=== PATIENT | male | born 1980 | race African-American/Black ===

== ENCOUNTER 2016-08-04 01:54 | Emergency (ER) | payer SELFPAY ==
[~2016-08-04] VITALS: Ht 190.5 cm; Wt 103.0 kg
[2016-08-04 02:00] VITALS: BP 150/94; PULSE 78; RESP 18; TEMP 99; O2SAT 96
[2016-08-04] MEDS ORDERED: CLIN1CAP5 PO (02:57)
[2016-08-04] MEDS ORDERED: NAPR500 PO (02:57)
--- NOTE | 2016-08-04 02:57 | PD ---
HPI Chief Complaint: Oral / Dental Pain or Problem Time Seen by Provider: 02:53 Travel History International Travel<30 days: No Contact w/Intl Traveler<30days: No Traveled to known affect area: No History of Present Illness HPI Patient comes in complaining of right lower dental pain ongoing for 3 days. Sharp stabbing in nature without radiation. Patient has been using warm saltwater gargles with no improvement of symptoms. Eating and smoking makes the pain worse. Denies any fevers or difficulty swallowing. Patient denies anything like this in the past. PFSH Past Medical History Medical History: Denies Significant Hx Diminished Hearing: No Past Surgical History Abdominal Surgery: Yes (appendectomy) Appendectomy: Yes Other Surgery: Yes (R HAND) Social History Alcohol Use: No Tobacco Use: Yes (denies) Substance Use: No Allergies-Medications (Allergen,Severity, Reaction): Coded Allergies: No Known Allergies (Verified , 08/04/16) Reported Meds & Prescriptions Reported Meds & Active Scripts Active Naprosyn (Naproxen) 500 Mg Tab 500 Mg PO Q12HR PRN Clindamycin (Clindamycin HCl) 150 Mg Cap 2 Tab PO Q6H 10 Days Review of Systems Except as stated in HPI: all other systems reviewed are Neg Physical Exam Narrative GENERAL: Well-developed, well nourished, in no acute distress, and non-ill appearing. SKIN: Warm and dry. HEAD: Atraumatic. Normocephalic. EYES: Pupils equal and round. EOMI. No scleral icterus. No injection or drainage. ENT: No nasal bleeding or discharge. Mucous membranes pink and moist. Poor dentition with no visible or palpable abscess. Uvula is midline. Floor of the mouth, submandibular, submental are all soft to palpation. NECK: Trachea midline. No cervical lymphadenopathy. Supple. No nuclear rigidity. RESPIRATORY: No accessory muscle use. No respiratory distress. MUSCULOSKELETAL: No obvious deformities. No clubbing. No cyanosis. No edema. Full range of motion. NEUROLOGICAL: Awake and alert. No obvious cranial nerve deficits. Motor grossly within normal limits. Normal speech. PSYCHIATRIC: Appropriate mood and affect; insight and judgment normal. Data Data Last Documented VS Vital Signs Date Time Temp Pulse Resp B/P Pulse Ox O2 Delivery O2 Flow Rate FiO2 08/04/16 02:00 99.0 78 18 150/94 96 Orders Clindamycin (Cleocin) (08/04/16 03:00) Naproxen (Naprosyn) (08/04/16 03:00) MDM Medical Decision Making Medical Screen Exam Complete: Yes Emergency Medical Condition: Yes Differential Diagnosis Dental abscess, dental caries, dentalgia, other Narrative Course The patient presented with dental pain. There is no fever. There is no significant facial swelling or evidence of cellulitis. There is poor dentition but no evidence of drainable abscess at this time. There is no evidence of significant deep or invading abscess at this time. The patient will be placed on antibiotics and pain medication. The patient was instructed to follow up with a dentist. The patient was given the dental referral sheet. Warnings were discussed with the patient regarding worsening of infection. The patient is to return if pain worsens, develops progressive swelling or facial redness or fever. The patient agrees with plan. Patient in no obvious distress upon re-evaluation. Patient was asked if they wanted to speak to my attending, which the patient did not wish to do at this time. Any questions/concerns in reference to patient diagnosis/condition discussed and clarified prior to patient's discharge. Reinforced sheer importance of close follow up with patient's primary physician or primary care clinic. Instructed patient to return to ED immediately, if symptoms return/ worsen. Pt showed understanding of above instructions. Further instructions and recommendations were detailed in discharge paperwork. Pt ambulated without difficulty out of ED at discharge. Diagnosis Primary Impression: Dentalgia Patient Instructions: Dental Abscess (GEN), Dental Caries (DC), General Instructions Additional Instructions: Follow-up with your primary care physician and dentist as soon as possible. Rinse mouth with warm salt water gargles. Take all medication as prescribed. Return to the emergency department if symptoms get worse. Med/Other Pt SpecificInfo: Prescription(s) given Scripts Naproxen (Naprosyn)500 Mg [id number] Mg PO Q12HR PRN (PAIN SCALE 1 TO 10) #14 TAB Ref 0 Prov:Andrew Red MD 08/04/16 Clindamycin 150 Mg Cap2 Tab PO Q6H 10 Days Ref 0 Prov:Andrew Red MD 08/04/16 Disposition: 01 DISCHARGE HOME Condition: Stable Jerry Retana Aug 04, 2016 02:57
[2016-08-04] MEDS ORDERED: CLINDAMYCIN 150 MG CAP PO ONE (03:00)
[2016-08-04] MEDS ORDERED: NAPROXEN 500 MG TAB PO ONE (03:00)
== END 2016-08-04 04:50 | disposition home or self-care (01) ==
LOC: NEPB 01:54
DX: K08.89 Other specified disorders of teeth and supporting structures (principal)
CPT/HCPCS: 99282